=== PATIENT | female | born 1955 | race Caucasian/White ===

== ENCOUNTER → 2017-03-01 | Outpatient (CLI) | payer BC ==
--- NOTE | 2017-03-01 16:33 | RAD ---
DATE: March 01, 2017 EXAM: DIGITAL SCREEN BILAT W/CAD HISTORY: Routine screening. COMPARISON: March 04, 2015. May 15, 2013. TECHNIQUE: 2D digital CC and MLO views of each breast were obtained. This study was interpreted with the benefit of Computerized Aided Detection (CAD). FINDINGS: The breast parenchyma is heterogeneously dense, category C, which may obscure small masses. There is no worrisome mass or area of architectural distortion. There are a few benign-appearing calcifications. IMPRESSION: Benign findings. BI-RADS CATEGORY: 2 BENIGN FINDING RECOMMENDED FOLLOW-UP: 12M 12 MONTH FOLLOW-UP PQRS compliance statement: Patient information was entered into a reminder system with a target due date for the next mammogram. Mammography is a sensitive method for finding small breast cancers, but it does not detect them all and is not a substitute for careful clinical examination. A negative mammogram does not negate a clinically suspicious finding and should not result in delay in biopsying a clinically suspicious abnormality. "Our facility is accredited by the [employer] Mammography [employer]."
== END | disposition home or self-care (01) ==
LOC: MAMMO 14:19
PROVIDERS: ATTEND Family Medicine
DX: Z12.31 Encounter for screening mammogram for malignant neoplasm of breast (principal)
CPT/HCPCS: G0202; 77067

== ENCOUNTER → 2018-05-24 | Outpatient (CLI) | payer BC ==
--- NOTE | 2018-05-25 08:20 | RAD ---
DATE: 05/24/2018 4:00 PM EXAM: MAMMO MIA SCREENING BILATERAL HISTORY: routine screening evaluation. COMPARISON: Prior mammographic imaging dating back to 05/15/2011 Bilateral CC and MLO views of the breasts were performed. Bilateral breast tomosynthesis was performed in CC and MLO projections. This study was interpreted with the benefit of Computerized Aided Detection (CAD ). Breast Density: The breast parenchyma is dense, which could reduce the sensitivity of mammography. Breast parenchyma level density D. FINDINGS: Benign calcifications are present. The parenchymal pattern appears stable. No suspicious masses, microcalcifications or architectural distortion is present to suggest malignancy in either breast. The visualized axillae are unremarkable. IMPRESSION: No mammographic evidence of malignancy. BI-RADS CATEGORY: 2 BENIGN FINDING(S) RECOMMENDED FOLLOW-UP: 12M 12 MONTH FOLLOW-UP Annual screening mammography is recommended, unless clinically indicated sooner based on symptoms or change in physical exam. PQRS compliance statement: Patient information was entered into a reminder system with a target due date 05/26/2019 for the next mammogram. Mammography is a sensitive method for finding small breast cancers, but it does not detect them all and is not a substitute for careful clinical examination. A negative mammogram does not negate a clinically suspicious finding and should not result in delay in biopsying a clinically suspicious abnormality. "Our facility is accredited by the [employer] Mammography Program." MGD
== END | disposition home or self-care (01) ==
LOC: MAMMO 14:14
PROVIDERS: ATTEND Family Medicine
DX: Z12.31 Encounter for screening mammogram for malignant neoplasm of breast (principal)
CPT/HCPCS: 77063; 77067

== ENCOUNTER → 2019-05-25 | Outpatient (CLI) | payer BC ==
--- NOTE | 2019-05-25 16:36 | RAD ---
CHEST PA LATERAL Clinical indications: Cough. COMPARISON: No previous chest x-ray available. Findings: Hyperinflation is seen consistent with COPD. Old granulomatous disease is seen. There is mild right lateral costophrenic angle atelectasis or scarring. No lung consolidation or pleural effusion or pulmonary edema or pneumothorax is evident. The heart size and pulmonary vasculature and mediastinum and both hunter are unremarkable. Impression: COPD. Mild linear atelectasis or scarring within the right lateral costophrenic angle. Otherwise no lung consolidation is seen. Electronically signed by: Akira Terrell MD (05/25/2019 4:33 PM) [place]
== END | disposition home or self-care (01) ==
LOC: DXRAD 13:59
PROVIDERS: ATTEND Family Medicine
DX: Z01.811 Encounter for preprocedural respiratory examination (principal); D71 Functional disorders of polymorphonuclear neutrophils; J44.9 Chronic obstructive pulmonary disease, unspecified
CPT/HCPCS: 71046

== ENCOUNTER → 2019-08-23 | Outpatient (CLI) | payer BC ==
--- NOTE | 2019-08-23 16:13 | RAD ---
ABDOMEN COMPLETE History: Reason: RUQ PAIN / Spl. Instructions: / History: Comparison: None. Technique: Sonographic examination of the abdomen was performed and multiple grayscale and color Doppler static images were obtained. Findings: Liver demonstrates increased echogenicity. The liver measures 17 cm. Portal flow is patent. Common bile duct measures 5.2 mm in diameter. Gallbladder sludge. No gallbladder wall thickening. No pericholecystic fluid. Visualized pancreas is is not well seen due to overlying bowel gas. The right kidney measures 11.3 x 4.7 x 3.9 cm. No hydronephrosis. Possible small right renal cyst measures 0.9 cm. The left kidney measures 10.4 x 4.4 x 5.7 cm. No hydronephrosis. The spleen not well seen due to overlying bowel gas and structures. Aorta and IVC not well seen due to overlying bowel gas. IMPRESSION: 1. Increased hepatic echotexture, may indicate steatosis. 2. Gallbladder sludge. Electronically signed by: Ciro Rivers DO (08/23/2019 4:10 PM) [facility]
== END | disposition home or self-care (01) ==
LOC: US 10:33
PROVIDERS: ATTEND Family Medicine
DX: K82.8 Other specified diseases of gallbladder (principal)
CPT/HCPCS: 76700

== ENCOUNTER → 2019-09-01 | Outpatient (CLI) | payer BC ==
[~2019-09-01] VITALS: Ht 162.6 cm; Wt 59.0 kg
[~2019-09-01] MED LIST: SINCALIDE 1.18 MCG in IV NORMAL SALINE 50ML 30 ML IV ONE
--- NOTE | 2019-09-01 13:58 | RAD ---
HEPATOBILIARY SCAN WITH EJECTION FRACTION 09/01/2019 1:54 PM History: Reason: Abdominal pain / abnormal sono / Spl. Instructions: / History: Procedure: Serial static images are obtained of the liver and biliary system in the frontal projection following IV administration of 5.5 mCi of Technetium 99m Choletec. After filling of the gallbladder, 1.2 mcg of sincalide were infused over 30 minutes and dynamic imaging continued over this period. The gallbladder ejection fraction was calculated. Findings: There is prompt hepatic clearance of tracer from the blood pool. There is homogeneous distribution throughout the liver. The gallbladder ejection fraction measures 4% (normal gallbladder EF is 35% or greater). IMPRESSION: 1. The cystic duct and common bile duct are patent. Negative for acute cholecystitis. 2. The gallbladder ejection fraction is abnormally low measuring 4%. Findings may indicate chronic cholecystitis or gallbladder dyskinesia. Electronically signed by: Marcell Church MD (09/01/2019 1:55 PM) [id number]
== END ==
LOC: NM 08:47
PROVIDERS: ATTEND Family Medicine
DX: R93.2 Abnormal findings on diagnostic imaging of liver and biliary tract (principal)
CPT/HCPCS: 78227; A9537; J2805

== ENCOUNTER → 2019-09-18 | Outpatient (CLI) | payer BC ==
--- NOTE | 2019-09-18 11:36 | RAD ---
EXAM: Left knee, 5 views. HISTORY: Pain. Fall. COMPARISON: None. FINDINGS: 5 views left knee are obtained. There is no fracture, dislocation or subluxation. There is minimal medial compartment spurring. There is suprapatellar soft tissue prominence which may be due to a soft tissue hematoma. There is benign sclerosis within the proximal tibial metadiaphysis. IMPRESSION: 1. Suprapatellar soft tissue prominence. Given a history of recent fall, this may be due to a soft tissue hematoma. No joint effusion or fracture is seen. 2. Mild medial compartment osteoarthritis of the left knee. Electronically signed by: Mehnaz Carranza MD (09/18/2019 11:33 AM) [id number]
== END | disposition home or self-care (01) ==
LOC: DXRAD 10:42
PROVIDERS: ATTEND Family Medicine
DX: M17.12 Unilateral primary osteoarthritis, left knee (principal); Z91.81 History of falling
CPT/HCPCS: 73564

== ENCOUNTER → 2020-01-30 | Outpatient (CLI) | payer BC ==
[~2020-01-30] MED LIST changes: +ASCO100T4 PO; +ASPI-630 PO; +BUSP10TA PO; +DILT240C32 PO; +FAMO40TA4 PO; +LOSA100T14 PO; +MULT-245 PO; -SINCALIDE 1.18 MCG in IV NORMAL SALINE 50ML 30 ML IV ONE; +SUCR1TAB PO
== END ==
LOC: LAB 15:00
PROVIDERS: ATTEND Nurse Anesthetist, Certified Registered
DX: Z01.812 Encounter for preprocedural laboratory examination (principal); Z12.11 Encounter for screening for malignant neoplasm of colon; Z20.828 Contact with and (suspected) exposure to other viral communicable diseases
CPT/HCPCS: U0003

== ENCOUNTER → 2020-02-02 | Day surgery (SDC) | payer BC ==
[~2020-02-02] MED LIST changes: +ACETAMINOPHEN 325 MG TABLET PO PRN; +ALBUTEROL SULFATE 2.5 MG/3 ML NEBU. NEB PRN; +ATROPINE 0.5 MG/5 ML DISP.SYRIN. IV PRN; +IV RINGERS SOLUTION,LACTATED 1,000 ML IV SCH; +LIDOCAINE 2% PF 5 ML VIAL. ONE; +ONDANSETRON PF 4 MG/2 ML VIAL. IV PRN; +PHENOL ORAL SPRAY 177ML BOTTLE. MM PRN; +PHENYLEPHRINE 10 MG/ML VIAL. IV ONE; +PROPOFOL 10,000 MCG/ML (20ML) VIAL IV ONE; +diphenhydrAMINE 50 MG/ML VIAL IV PRN
[2020-02-02 12:46] VITALS: BP 126/77
--- NOTE | 2020-02-09 11:05 | PATHOLOGY ---
[facility] Accession Number: [id number] . 01 Material submitted: . PART A: gastrointestinal site - BIOPSY ANTRUM GASTRITIS PART B: cecum - BIOPSY CECUM POLYP X2. Modifiers: 2 PART C: colon - POLYPECTOMY DISTAL TRANSVERSE COLON. Modifiers: distal, transverse . 01 Clinical history: . ABDOMEN PAIN, N/V, SCREENING EGD WITH BIOPSY, COLON WITH BIOPSY . 02 Diagnosis: A. Gastric biopsies, antrum: - Chronic gastritis, mild. . B. Colon biopsies, cecal polyps x2: - Tubular adenomas. . C. Colon polyp, distal transverse colon polypectomy: - Large pedunculated tubular adenoma, measuring up to 2.8 cm in greatest dimension. . (JPM:mml; 02/08/2020) [facility] 02/08/2020 1357 Local . 02 Comment: Sections of the gastric antral biopsy show congestion and mild chronic inflammation. A properly-controlled immunoperoxidase stain for Helicobacter is negative for Helicobacter organisms. . Sections of the cecal polyp biopsies reveal two tubular adenomas showing no high grade dysplasia or evidence of malignancy. . Sections of the distal transverse colon polypectomy reveal a large pedunculated tubular adenoma. There is no high grade dysplasia or evidence of malignancy. The base of the polyp appears to be lined by normal colonic mucosa. . Special stain: Immunoperoxidase stain for Helicobacter on A1. . (JPM:mml; 02/08/2020) . 02 Electronically signed: . Chad Thorpe MD, Pathologist NPI- [id number] . 01 Gross description: . A. The specimen is received in formalin, labeled "Halle Pasqualemagdiel, biopsy antrum gastritis". Received are two segments of pale lam soft tissue ranging in size from 0.3 to 0.4 cm in maximum dimensions. The specimen is submitted entirely in cassette A1. . B. The specimen is received in formalin, labeled "Halle Wyatt, biopsy cecum polyp x2". Received are two segments of pale lam soft tissue measuring 0.3 cm each in maximum dimensions. The specimen is submitted entirely in cassette B1. . C. The specimen is received in formalin, labeled "Halle Wyatt, polypectomy distal transverse". Received is a polypoid segment of red-brown soft tissue measuring 2.8 x 2.3 x 2.0 cm in greatest dimensions. The surgical margin is inked. The specimen is serially sectioned and entirely submitted in cassettes C1 through C6. Due to the nature of the specimen, fragmentation has occurred upon sectioning. QAC/QAC 02/07/2020 1117 Local . 02 Pathologist provided ICD-10: K29.50, D12.0, D12.3 . 02 CPT . 064585, 945451, 485767, [id number] Specimen Comment: A courtesy copy of this report has been sent to [phone], [phone] Specimen Comment: [id number] Specimen Comment: Report sent to / DR BETANCUR Specimen Comment: A duplicate report has been generated due to demographic updates. Performed at: 01 [facility] [address], [place], [place] [id number] MD Renan Barragan MD Phone: [phone] Performed at: 02 [facility] [address] [place], [place] [id number] MD Chad Thorpe MD Phone: [phone]
== END | disposition home or self-care (01) ==
LOC: SURG 09:29
PROVIDERS: ATTEND Internal Medicine Gastroenterology
DX: Z12.11 Encounter for screening for malignant neoplasm of colon (principal); R10.12 Left upper quadrant pain; K21.00 Gastro-esophageal reflux disease with esophagitis, without bleeding; K29.00 Acute gastritis without bleeding; K44.9 Diaphragmatic hernia without obstruction or gangrene; K63.5 Polyp of colon; K57.30 Diverticulosis of large intestine without perforation or abscess without bleeding; K64.8 Other hemorrhoids; I10 Essential (primary) hypertension; J44.9 Chronic obstructive pulmonary disease, unspecified; Z91.81 History of falling; M17.12 Unilateral primary osteoarthritis, left knee; Z79.899 Other long term (current) drug therapy; Z79.82 Long term (current) use of aspirin; Z98.890 Other specified postprocedural states
CPT/HCPCS: 43239; 45380; 45381; 45385; J2001; J2704; J7120

== ENCOUNTER → 2020-04-26 | Outpatient (CLI) | payer BC ==
[2020-02-02 12:46] VITALS: BP 126/77
[~2020-04-26] MED LIST changes: -ACETAMINOPHEN 325 MG TABLET PO PRN; -ALBUTEROL SULFATE 2.5 MG/3 ML NEBU. NEB PRN; -ATROPINE 0.5 MG/5 ML DISP.SYRIN. IV PRN; -IV RINGERS SOLUTION,LACTATED 1,000 ML IV SCH; -LIDOCAINE 2% PF 5 ML VIAL. ONE; -ONDANSETRON PF 4 MG/2 ML VIAL. IV PRN; -PHENOL ORAL SPRAY 177ML BOTTLE. MM PRN; -PHENYLEPHRINE 10 MG/ML VIAL. IV ONE; -PROPOFOL 10,000 MCG/ML (20ML) VIAL IV ONE; -diphenhydrAMINE 50 MG/ML VIAL IV PRN
--- NOTE | 2020-04-26 17:42 | RAD ---
Right foot 3 views INDICATION: Foot pain COMPARISON: None FINDINGS: Combination of hallux valgus deformity in the great toe and hammertoe deformity to the second digit r esults in overlap between the first and second digits. Alignment otherwise unremarkable. There is a pair of fixation screws in the mid shaft of the fifth metatarsal. They are surrounded by a well healed fracture line but the more proximal screw shows mild surrounding lucency in the bone. Bones show mild generalized demineralization but no acute fracture and no aggressive appearing bony l esions otherwise noted. Soft tissues are unremarkable. IMPRESSION: There is some lucency surrounding the more proximal of the 2 screws placed in fixation of a now heale d fifth metatarsal midshaft fracture. Cannot exclude loosening of the screw or other pathologic proce ss. Correlate with clinical symptoms. Recommend clinical follow-up. Electronically signed by: Steph Washington MD (04/26/2020 5:40 PM) [id number]
== END ==
LOC: RAD 11:48
PROVIDERS: ATTEND Family Medicine
DX: M20.11 Hallux valgus (acquired), right foot (principal)
CPT/HCPCS: 73630

== ENCOUNTER 2020-05-22 00:21 | Inpatient (IN) | payer BC ==
[~2020-05-22] VITALS: Ht 162.6 cm; Wt 59.2 kg
[2020-05-22 00:50] LABS: HEMATOCRIT 39.9 % (36.0-47.0); HEMOGLOBIN 13.1 g/dL (12.0-15.5); MEAN CORPUSCULAR HEMOGLOBIN 37 pg (25-35); MEAN CORPUSCULAR HGB CONC 33 g/dL (31-37); MEAN CORPUSCULAR VOLUME 112 fL (79-100); PLATELET COUNT 164 x10^3/uL (140-400); RED BLOOD COUNT 3.55 x10^6/uL (3.50-5.40); RED CELL DISTRIBUTION WIDTH 13.4 % (11.5-14.5); WHITE BLOOD COUNT 5.7 x10^3/uL (4.0-11.0)
[2020-05-22 00:59] LABS: CALCIUM 8.4 mg/dL (8.5-10.1); CREATININE 0.7 mg/dL (0.6-1.0); GFR 84.5; POTASSIUM 3.1 mmol/L (3.5-5.1)
[2020-05-22] MEDS ORDERED: ONDANSETRON PF 4 MG/2 ML VIAL. IVP ONE ×2 (01:00→03:00)
[2020-05-22] MEDS ORDERED: IV RINGERS SOLUTION,LACTATED 1,000 ML IV ONE ×2 (01:00→03:00)
[2020-05-22 01:07] LABS: ALBUMIN 3.5 g/dL (3.4-5.0); ALBUMIN/GLOBULIN RATIO 1.2 (1.0-1.7); TOTAL PROTEIN 6.5 g/dL (6.4-8.2)
[2020-05-22] MEDS ORDERED: CONTRAST GIVEN. MC PRN (01:15)
[2020-05-22 01:16] LABS: PLT ESTIMATE ADEQUATE (ADEQUATE)
[2020-05-22] MEDS ORDERED: IOHEXOL 300 MG/ML 75 ML VIAL. IV ONE (01:30)
--- NOTE | 2020-05-22 01:54 | RAD ---
EXAM: CT ABDOMEN/PELVIS WITH CONTRAST. HISTORY: Epigastric pain. TECHNIQUE: Computed tomography of the abdomen and pelvis was performed after the intravenous administ ration of iodinated contrast. One or more of the following individualized dose reduction techniques w ere utilized for this examination: 1. Automated exposure control. 2. Adjustment of the mA and/or kV according to patient size. 3. Use of iterative reconstruction technique. COMPARISON: None. FINDINGS: Lung windows through the visualized portions of the bases reveal mild to moderate centrilob ular emphysema. There is a calcified granuloma in the left lower lobe. Coronary atherosclerotic calci fications are noted. Bone windows reveal no suspicious lesions. Diffuse hepatic steatosis is severe. The gallbladder is surgically absent. The common duct measures 9 mm. No cause for distal obstruction is seen. There is mild stranding about the pancreas. No pancreat ic parenchymal lesions are seen. There is no drainable collection. The pancreatic duct is not dilated . There is a 1 cm cyst at the right renal upper pole. The left kidney, adrenal glands and spleen are un remarkable. There are no pathologically enlarged lymph nodes. There is no small bowel obstruction. Th e appendix is not inflamed. Small bilateral inguinal hernias containing only fat. IMPRESSION: 1. Mild stranding about the pancreas suggesting pancreatitis. Correlate with lipase. 2. Severe diffuse hepatic steatosis. 3. Small bilateral inguinal hernias containing only fat. 4. Mild extrahepatic biliary dilatation status post cholecystectomy. Correlate for cholestasis to ass ess significance. 5. Centrilobular emphysema in the lung bases. Electronically signed by: Danielle Dobson MD (05/22/2020 1:51 AM) [facility]
--- NOTE | 2020-05-22 02:47 | PHYS DOC ---
Adult General Chief Complaint Chief Complaint: ABDOMINAL PAIN HPI HPI Patient is a 65-year-old female with a past medical history significant for COPD, alcoholism and alcoholic pancreatitis who presents with a chief complaint of epigastric pain. States he has had the pain for about 2 days now, and decre ased appetite. States that the pain is 8 out of 10, sharp in nature with some radiation to the back. States she is had some nausea and no vomiting. States her last drink was yesterday afternoon, and drinks hard liquor. Does endorse increased sputum, and cough over baseline over the last few days but is still a cigarette smoker. Denies any recent travel, illnesses, fevers, chest pain, dysuria, hematuria or blood in the stool. Review of Systems Review of Systems Constitutional: Denies fever or chills [] Eyes: Denies change in visual acuity, redness, or eye pain [] HENT: Denies nasal congestion or sore throat [] Respiratory: Denies cough or shortness of breath [] Cardiovascular: No additional information not addressed in HPI [] GI: Denies abdominal pain, nausea, vomiting, bloody stools or diarrhea [] : Denies dysuria or hematuria [] Musculoskeletal: Denies back pain or joint pain [] Integument: Denies rash or skin lesions [] Neurologic: Denies headache, focal weakness or sensory changes [] Endocrine: Denies polyuria or polydipsia [] All other systems were reviewed and found to be within normal limits, except as documented in this note. Current Medications Current Medications Current Medications Medications (Trade) Dose Ordered Sig/Brooke Start Time Stop Time Status Last Admin Dose Admin Fentanyl Citrate (Fentanyl 2ml Vial) 50 mcg 1X ONCE 05/22/20 01:00 05/22/20 01:01 DC 05/22/20 01:04 50 MCG Info (Do NOT chart on this entry -- for MONITORING) 1 each PRN DAILY PRN 05/22/20 01:15 05/24/20 01:14 Iohexol (Omnipaque 300 Mg/ml) 75 ml 1X ONCE 05/22/20 01:30 05/22/20 01:31 DC 05/22/20 01:10 75 ML Lactated Ringer's 1,000 ml @ 1,000 mls/hr 1X ONCE 05/22/20 01:00 05/22/20 01:59 DC 05/22/20 01:01 1,000 MLS/HR Ondansetron HCl (Zofran) 4 mg 1X ONCE 05/22/20 01:00 05/22/20 01:01 DC 05/22/20 01:01 4 MG Allergies Allergies Allergies Coded Allergies Type Severity Reaction Last Updated Verified No Known Drug Allergies 09/01/19 No Physical Exam Physical Exam Constitutional: Well developed, well nourished, no acute distress, non-toxic appearance. [] HENT: Normocephalic, atraumatic, bilateral external ears normal, oropharynx moist, no oral exudates, nose normal. [] Eyes: conjunctiva normal, no discharge. [] Neck: Normal range of motion, no tenderness, supple, no stridor. [] Cardiovascular:Heart rate regular rhythm, no murmur [] Lungs & Thorax: Coarse bilateral breath sounds with Abdomen: , soft, epigastric tenderness, no masses, no pulsatile masses. [] Skin: Warm, dry, no erythema, no rash. Capillary refill approximately 3 to 4 seconds [] Back: No tenderness, no CVA tenderness. [] Extremities: No tenderness, no cyanosis, no clubbing, ROM intact, no edema. [] Neurologic: Alert and oriented X 3, normal motor function, normal sensory function, no focal deficits noted. [] Psychologic: Affect normal, judgement normal, mood normal. [] Current Patient Data Vital Signs Vital Signs Date Time Temp Pulse Resp B/P (MAP) Pulse Ox O2 Delivery O2 Flow Rate FiO2 05/22/20 01:04 18 91 Room Air Lab Results Laboratory Tests Test 05/22/20 00:35 White Blood Count 5.7 x10^3/uL (4.0-11.0) Red Blood Count 3.55 x10^6/uL (3.50-5.40) Hemoglobin 13.1 g/dL (12.0-15.5) Hematocrit 39.9 % (36.0-47.0) Mean Corpuscular Volume 112 fL (79-100) H Mean Corpuscular Hemoglobin 37 pg (25-35) H Mean Corpuscular Hemoglobin Concent 33 g/dL (31-37) Red Cell Distribution Width 13.4 % (11.5-14.5) Platelet Count 164 x10^3/uL (140-400) Platelet Estimate Adequate (ADEQUATE) Macrocytosis Mod Sodium Level 142 mmol/L (136-145) Potassium Level 3.1 mmol/L (3.5-5.1) L Chloride Level 98 mmol/L (98-107) Carbon Dioxide Level 14 mmol/L (21-32) L Anion Gap 30 (6-14) H Blood Urea Nitrogen 10 mg/dL (7-20) Creatinine 0.7 mg/dL (0.6-1.0) Estimated GFR (Cockcroft-Gault) 84.5 BUN/Creatinine Ratio 14 (6-20) Glucose Level 75 mg/dL (70-99) Calcium Level 8.4 mg/dL (8.5-10.1) L Total Bilirubin 1.0 mg/dL (0.2-1.0) Aspartate Amino Transferase (AST) 174 U/L (15-37) H Alanine Aminotransferase (ALT) 142 U/L (14-59) H Alkaline Phosphatase 160 U/L (46-116) H Total Protein 6.5 g/dL (6.4-8.2) Albumin 3.5 g/dL (3.4-5.0) Albumin/Globulin Ratio 1.2 (1.0-1.7) Lipase 3000 U/L (73-393) H EKG EKG EKG with a rate of 87, QRS of 80, QTc of 473, no STEMI [] Radiology/Procedures Radiology/Procedures [] IMPRESSION: 1. Mild stranding about the pancreas suggesting pancreatitis. Correlate with lipase. 2. Severe diffuse hepatic steatosis. 3. Small bilateral inguinal hernias containing only fat. 4. Mild extrahepatic biliary dilatation status post cholecystectomy. Correlate for cholestasis to assess significance. 5. Centrilobular emphysema in the lung bases. Electronically signed by: Danielle Dobson MD (05/22/2020 1:51 AM) [facility] Chest x-ray with no obvious consolidation, atypical pneumonia or pneumothorax. Has a calcified granuloma in the left lower lobe. Patient does appear to have significant air trapping in her stomach. Heart Score Risk Factors: Risk Factors: DM, Current or recent (<one month) smoker, HTN, HLP, family history of CAD, obesity. Risk Scores: Risk Factors: DM, Current or recent (<one month) smoker, HTN, HLP, family hist ory of CAD, obesity. Course & Med Decision Making Course & Med Decision Making Patient is a 65-year-old female who presents with epigastric pain, nausea and decreased appetite for 2 days. Patient states she is an alcoholic and had her last drink of hard alcohol yesterday. Also endorses increased cough with sputum production. Vital signs notable for tachypnea and oxygen saturation 89% on room air. Placed on 2 L nasal cannula which brought her up to 94%. Placed IV. Started on IV fluid resuscitation. Gave fentanyl for pain and Zofran for nausea. Made NPO. EKG noted above with normal sinus rhythm. Troponin not concerning. Gave her DuoNeb treatment, and steroids as well as doxycycline for COPD exacerbation. Discussed all findings with patient and recommended admission to the hospital for continued evaluation and treatment of her pancreatitis and COPD exacerbation. Patient grateful, verbalized understanding and agreed with plan of admission. [] Dragon Disclaimer Dragon Disclaimer This electronic medical record was generated, in whole or in part, using a voice recognition dictation system. Departure Departure: Impression: Primary Impression: Pancreatitis Additional Impression: COPD exacerbation Disposition: ADMITTED INPT THIS HOSP Admitting Physician: Yung Suarez Condition: IMPROVED Referrals: TEHEL BETANCUR MD (PCP) Problem Qualifiers SANDEEP MILAN MD May 22, 2020 02:47
[2020-05-22] MEDS ORDERED: DEXAMETHASONE 4 MG TABLET PO ONE (03:00)
[2020-05-22] MEDS ORDERED: DOXYCYCLINE HYCLATE 100 MG TABLET PO ONE (03:00)
[2020-05-22] MEDS ORDERED: IPRATRPIUM/ALBUTEROL 0.5/2.5MG 3 ML NEBU. NEB ONE (03:00)
--- NOTE | 2020-05-22 03:09 | EKG ---
[address] [address] Test Date: 2020-05-22 Test Time: 03:03:27 Pat Name: CLAUDIA MARTIN Department: Room: Gender: F Leveler: : 1955 Requested By: SANDEEP MILAN Order Number: [id number] Reading MD: Measurements Intervals [place] Rate: 87 P: 44 MN: 172 QRS: 62 QRSD: 80 T: 64 QT: 388 QTc: 473 Interpretive Statements SINUS RHYTHM NORMAL ECG RI6.02 No previous ECG available for comparison
[2020-05-22 03:15] LABS: BACTERIA,URINE 0 /HPF (0-FEW); BILIRUBIN,URINE NEG (NEG); CLARITY,URINE CLEAR; COLOR,URINE YELLOW; GLUCOSE,URINE NEG (NEG); NITRITE,URINE NEG (NEG); RBC,URINE 0 /HPF (0-2); SQUAMOUS EPITHELIAL CELL,UR OCC /LPF; WBC,URINE OCC /HPF (0-4)
--- NOTE | 2020-05-22 03:16 | RAD ---
EXAM: CHEST ONE VIEW. HISTORY: Shortness of breath, cough. COMPARISON: 05/25/2019. FINDINGS: A frontal view of the chest is obtained. Hyperinflation is consistent with chronic obstructive pulmonary disease. A right infrahilar opacity a be secondary to summation of normal vasculature and the right heart border but this is unclear. Ther e are calcified granulomas bilaterally. Scarring or atelectasis is noted in the right base and left m idlung. There is no pneumothorax or pleural effusion. The heart is not enlarged. There are atheroscle rotic calcifications of the aorta. IMPRESSION: 1. Right infrahilar opacity may be summation of normal structures but this is unclear. Follow-up or C T could exclude an infrahilar mass or infiltrate. Electronically signed by: Danielle Dobson MD (05/22/2020 3:14 AM) [facility]
[2020-05-22 05:30] VITALS: BP 117/60
[2020-05-22] MEDS ORDERED: MAGN71.5 PO (06:04)
[2020-05-22] MEDS ORDERED: OMEP20TA63 PO (06:04)
[2020-05-22 06:52] VITALS: BP 124/75
[2020-05-22] MEDS: MVI, ADULT NO.4 WITH VIT K 10 ML, THIAMINE INJ 100 MG, FOLIC ACID INJ 1 MG in IV NORMAL... IV SCH (09:00)
[2020-05-22] MEDS ORDERED: cloNIDine HCL 0.1 MG TABLET PO PRN (09:15)
[2020-05-22] MEDS ORDERED: diphenhydrAMINE 50 MG/ML VIAL IVP PRN (09:15)
[2020-05-22] MEDS ORDERED: LORazepam 1 MG TABLET PO PRN ×2 (09:15)
--- NOTE | 2020-05-22 10:11 | HP ---
ADMIT DATE: 05/22/2020 ATTENDING PHYSICIAN: Dr. Infante. CHIEF COMPLAINT: Abdominal pain. HISTORY OF PRESENT ILLNESS: The patient is a 65-year-old female admitted through the ED with a 2-day history of epigastric and generalized abdominal pain, decreased appetite, pain is 8/10, sharp in nature with some radiation to the back. She and her both drink heavily. There alcohol of choice is [employer] They buy a half gallon bottle and it would last the two of them 2 days, suggesting that she drinks approximately a quart of alcohol every 2 days. She has had some cough. No COVID exposure. In the ED, extensive workup showed evidence of acute pancreatitis. She is admitted then for further treatment and evaluation. Lipase level was 3000. Abdominal CT showed stranding of the pancreas, diffuse hepatic steatosis, bilateral inguinal hernias without obstruction, mild extrahepatic biliary dilatation, previous cholecystectomy and some cholestasis, central lobar emphysema at the lung base. Chest x-ray demonstrated no acute infiltrates. She has a right infrahilar opacity, may be summation. A follow up CT recommended. PAST MEDICAL HISTORY: Significant for chronic alcoholism, essential hypertension and COPD. She is also a heavy smoker. CURRENT MEDICATIONS: Scheduled include ascorbic acid, aspirin, BuSpar, diltiazem 240, losartan, magnesium, multivitamin, omeprazole, and Carafate. ALLERGIES: She has no known drug allergies. FAMILY HISTORY: Her father of complications of lung cancer at age 68. Mom of complications of heart disease, diabetes, age 70. She is , retired, lives with her . SOCIAL HISTORY: Alcohol and tobacco use to excess as noted. REVIEW OF SYSTEMS: Significant for the localized abdominal pain, no hematemesis. No COVID exposure. She has chronic productive sputum. She is a heavy smoker. All other systems reviewed and determined to be negative. PHYSICAL EXAMINATION: GENERAL: When I saw her, this is a pleasant, alert, sober female. INITIAL VITAL SIGNS: Showed a blood pressure of 124/75, pulse is 90 and regular, temperature 98.1 degrees Fahrenheit, oxygen saturation 92% on 3 liters of supplemental oxygen by nasal cannula. HEENT: Head is without trauma. Pupils are reactive. Sclerae are nonicteric. The oropharynx is clear. NECK: Supple. LUNGS: Diffuse wheezing noted in the upper airways. CARDIOVASCULAR: Showed distant heart tones. No gallops. ABDOMEN: Soft. Minimal guarding. No rebound tenderness. Bowel sounds are hypoactive. EXTREMITIES: Showed trace edema. NEUROLOGIC: Focally intact. The patient was sober. Speech was fluent. She had no focal motor deficits. SKIN: Warm and dry. PERTINENT LABORATORY STUDIES: Admission hemoglobin is 13.1 g/dL with white count of 5700. The MCV is markedly elevated at 112, suggesting a metabolic acidosis related to alcoholism. Sodium is 142 mEq/L, potassium 3.1 mEq, creatinine is 0.7 mg/dL. Transaminases showed a bilirubin of 1, AST 174, ALT of 142, alkaline phosphatase of 160. The serum lipase was 3000. ASSESSMENT: 1. A 65-year-old female with acute pancreatitis. 2. Chronic alcoholism. 3. Alcoholic pancreatitis. 4. Status post cholecystectomy. 5. Chronic obstructive pulmonary disease due to tobacco addiction. 6. Asymptomatic hypokalemia. 7. Abdominal pain related to chronic alcoholism. PLAN: 1. Admit to the inpatient unit. 2. IV hydration. 3. N.p.o. 4. Pain and nausea control. 5. Nicotine patch. WILSON INFANTE MD DR: SHENA/raghu JOB#: [id number] / [id number] ETHEL Holloway MD
[2020-05-22] MEDS: NICOTINE 21MG PATCH. TD SCH (10:25)
[2020-05-22] MEDS: POTASSIUM CL 40MEQ IN 0.9%NACL 1,000 ML IV SCH ×2 (10:26→22:04)
[2020-05-22 11:00] VITALS: BP 120/70
[2020-05-22 15:00] VITALS: BP 143/99
[2020-05-22 19:30] VITALS: BP 140/95
[2020-05-22 22:11] VITALS: BP 136/87
[2020-05-23 06:11] VITALS: BP 120/86
[2020-05-23 06:23] LABS: ALBUMIN 2.8 g/dL (3.4-5.0); CALCIUM 7.6 mg/dL (8.5-10.1); CREATININE 0.6 mg/dL (0.6-1.0); POTASSIUM 4.3 mmol/L (3.5-5.1); TOTAL BILIRUBIN 0.9 mg/dL (0.2-1.0); TOTAL PROTEIN 5.6 g/dL (6.4-8.2)
[2020-05-23] MEDS: MVI, ADULT NO.4 WITH VIT K 10 ML, THIAMINE INJ 100 MG, FOLIC ACID INJ 1 MG in IV NORMAL... IV SCH (08:46)
--- NOTE | 2020-05-23 10:19 | PN ---
DATE: 05/23/2020 ATTENDING PHYSICIAN: Dr. Infante. SUBJECTIVE: The patient is lethargic from her Ativan. No active withdrawals. She is not hungry. She has had some clear liquids. Abdominal pain seems to be controlled. OBJECTIVE FINDINGS: VITAL SIGNS: Blood pressure today is 136/87 mmHg, pulse 92 and regular, temperature 98.5 degrees Fahrenheit, oxygen saturation 91% on 3 liters nasal cannula. HEENT: Head is without trauma. Pupils are reactive. Sclerae nonicteric. Oropharynx is clear. NECK: Supple, no bruits identified. LUNGS: Shallow respirations. CARDIOVASCULAR: Showed regular heart tones. No gallops. ABDOMEN: Soft. Hypoactive bowel sounds. There is no guarding or rebound tenderness. EXTREMITIES: Without edema. NEUROLOGIC: Sleepy. PERTINENT LABORATORY STUDIES: Sodium is 141 mEq, potassium replaced up to 4.3 mEq per liter. The creatinine is 0.6 mg/dL, nonfasting blood sugar 128. Transaminases are elevated. Bilirubin 0.9, AST 81, ALT 101 and alkaline phosphatase 126. ASSESSMENT: 1. A 65-year-old female with alcoholic pancreatitis. 2. Chronic alcoholism. 3. Alcoholic gastritis. 4. Status post cholecystectomy. 5. Chronic obstructive pulmonary disease due to tobacco use. 6. Hypokalemia, replaced. 7. Abdominal pain related to pancreatitis. PLAN: 1. Continue IV hydration. 2. Pain and nausea control. 3. Clear liquid diet. 4. Nicotine patch. 5. Follow up chemistries. WILSON INFANTE MD DR: SHENA/raghu JOB#: [id number] / [id number]
[2020-05-23] MEDS: NICOTINE 21MG PATCH. TD SCH (12:04)
[2020-05-23 12:10] VITALS: BP 131/92
[2020-05-23 14:57] VITALS: BP 144/95
[2020-05-23 19:25] VITALS: BP_SYST 122; BP_SYST 99; BP_DIAS 68; BP_DIAS 80
[2020-05-23 22:32] VITALS: BP 120/78
[2020-05-24 08:01] VITALS: BP 101/74
[2020-05-24] MEDS: MVI, ADULT NO.4 WITH VIT K 10 ML, THIAMINE INJ 100 MG, FOLIC ACID INJ 1 MG in IV NORMAL... IV SCH (09:22)
[2020-05-24] MEDS: NICOTINE 21MG PATCH. TD SCH (09:22)
[2020-05-24 11:00] VITALS: BP 112/81
[2020-05-24 15:00] VITALS: BP 113/82
--- NOTE | 2020-05-24 18:30 | PN ---
DATE: 05/24/2020 ATTENDING PHYSICIAN: Dr. Infante. SUBJECTIVE: Obtunded, barely arousable. OBJECTIVE FINDINGS: VITAL SIGNS: Blood pressure today is 120/78, pulse 99 and regular, temperature 97.8 degrees Fahrenheit, oxygen saturation 93% on room air. HEENT: Head is without trauma. Pupils are reactive. Oropharynx clear. NECK: No stridor. LUNGS: Shallow respirations. CARDIOVASCULAR: Showed distant heart tones, tachycardic rhythm. No gallops. ABDOMEN: Soft, no guarding or rebound tenderness. Bowel sounds are hypoactive. EXTREMITIES: Showed no cyanosis or edema. NEUROLOGIC: Obtunded, nonambulatory. ASSESSMENT: 1. A 65-year-old female with acute pancreatitis. 2. Chronic alcoholism. 3. Altered mentation due to alcohol withdrawal syndrome. 4. Probable Wernicke-Korsakoff syndrome. 5. Status post cholecystectomy. 6. Chronic obstructive pulmonary disease due to heavy tobacco use. 7. Hypokalemia, replaced. 8. Abdominal pain related to pancreatitis. PLAN: 1. Keep in ICU monitoring. 2. Continue IV hydration. 3. N.p.o. as she is obtunded. 4. CIWA protocol. 5. I will try to contact the daughter who has called earlier, the has a listed number, but he also drinks to excess and enabled her alcohol use. Prognosis remains guarded. She is a full code. WILSON INFANTE MD DR: SHENA/raghu JOB#: [id number] / [id number]
[2020-05-24 19:00] VITALS: BP 112/75
[2020-05-24 23:00] VITALS: BP 124/86
[2020-05-25 06:29] VITALS: BP 109/82
[2020-05-25] MEDS: NICOTINE 21MG PATCH. TD SCH (08:25)
[2020-05-25] MEDS: MVI, ADULT NO.4 WITH VIT K 10 ML, THIAMINE INJ 100 MG, FOLIC ACID INJ 1 MG in IV NORMAL... IV SCH (08:25)
--- NOTE | 2020-05-25 10:03 | PN ---
DATE: 05/25/2020 ATTENDING PHYSICIAN: Dr. Infante. SUBJECTIVE: More alert today. Not much of an appetite. No new complaints. OBJECTIVE FINDINGS: VITAL SIGNS: Blood pressure today is 109/82, pulse 100 and regular. She is afebrile. Oxygen saturation 92% on 2 liters. HEENT: Head is without trauma. Pupils are reactive. Sclerae nonicteric. Oropharynx clear. NECK: Supple, no bruits. LUNGS: Good breath sounds. CARDIOVASCULAR: Showed regular heart tones. No gallops. ABDOMEN: Soft. Hypoactive bowel sounds. EXTREMITIES: Without edema. NEUROLOGIC: Focally intact. Alert and sober. ASSESSMENT: 1. A 65-year-old female with alcoholic pancreatitis, improved. 2. Chronic alcoholism. 3. Chronic obstructive pulmonary disease. 4. Alcohol withdrawal syndrome, delirium tremens, improved. 5. Probable underlying Wernicke-Korsakoff syndrome. 6. Hypokalemia, replaced. PLAN: 1. Advance diet. 2. Pain and nausea control. 3. Physical therapy consult. She is quite weak. 4. Discharge planning. WILSON INFANTE MD DR: SHENA/raghu JOB#: [id number] / [id number]
[2020-05-25 11:33] VITALS: BP 109/82
[2020-05-25 15:00] VITALS: BP 113/82
[2020-05-25 20:01] VITALS: BP 133/91
[2020-05-26 05:39] VITALS: BP 134/87
[2020-05-26] MEDS ORDERED: ACETAMINOPHEN 325 MG TABLET PO PRN (06:15)
--- NOTE | 2020-05-26 08:30 | PN ---
DATE: 05/26/2020 ATTENDING PHYSICIAN: Dr. Infante. SUBJECTIVE: Very alert, sober, calm, no new acute distress. Abdominal pain and nausea has resolved. She remains very weak, however. She can barely pull herself up in the bed. Thus, she requires significant assistance for transfer and just for going to the bathroom. OBJECTIVE FINDINGS: VITAL SIGNS: Blood pressure today is 134/87, temperature 98.6, pulse 94 and regular, oxygen saturation 93% on 2 liters by nasal cannula. HEENT: Head is without trauma. Pupils are reactive. Sclerae nonicteric. Oropharynx clear. NECK: Supple. No stridor. LUNGS: Good breath sounds. CARDIOVASCULAR: Showed regular heart tones. No gallops. ABDOMEN: Soft. EXTREMITIES: Without edema. NEUROLOGIC: Profound weakness. She is unable to bear weight. She still requires quite a bit of assistance in transfer. Nevertheless, she is a very high risk of falling. ASSESSMENT: 1. A 65-year-old female with alcoholic pancreatitis, resolving. 2. Chronic alcoholism. 3. Delirium tremens symptoms resolved. 4. Probable underlying Wernicke-Korsakoff syndrome. 5. Hypokalemia, replaced. 6. Profound weakness related to alcoholism. PLAN: 1. Advance diet as tolerated. 2. Pain and nausea control. 3. Rx per physical therapy. 4. I strongly recommend discharge to subacute rehabilitation. I believe that physical therapy will share the same sentiments. She is going to decide if she wants to go home, but unfortunately she requires a higher level of care for discharge home at this time. WILSON INFANTE MD DR: SHENA/raghu JOB#: [id number] / [id number]
[2020-05-26] MEDS: NICOTINE 21MG PATCH. TD SCH (09:19)
[2020-05-26] MEDS: MVI, ADULT NO.4 WITH VIT K 10 ML, THIAMINE INJ 100 MG, FOLIC ACID INJ 1 MG in IV NORMAL... IV SCH (09:21)
[2020-05-26 13:34] VITALS: BP 130/81
[2020-05-26 19:25] VITALS: BP 137/91
[2020-05-26 22:55] VITALS: BP 119/84
[2020-05-27 05:10] VITALS: BP 144/89
[2020-05-27] MEDS: NICOTINE 21MG PATCH. TD SCH (07:45)
[2020-05-27] MEDS: MVI, ADULT NO.4 WITH VIT K 10 ML, THIAMINE INJ 100 MG, FOLIC ACID INJ 1 MG in IV NORMAL... IV SCH (07:46)
--- NOTE | 2020-05-27 08:40 | PN ---
DATE: 05/27/2020 ATTENDING PHYSICIAN: Dr. Infante. SUBJECTIVE: Mild low back pain tolerable. She is alert, no further nausea. No dyspnea. She is calm. We had a nice conversation. She is quite lucid. She realizes her condition is prone to falling. She is agreeable to go to subacute rehabilitation. OBJECTIVE FINDINGS: VITAL SIGNS: Blood pressure this morning is 144/89 mmHg, respirations 18, pulse is 91 per minute, temperature is afebrile and oxygen saturation 94% on 2 liters by nasal cannula. HEENT: Head is without trauma. Pupils are reactive. Sclerae nonicteric. Oropharynx clear. NECK: Supple. LUNGS: Good breath sounds. CARDIOVASCULAR: Showed regular heart tones. No gallops. ABDOMEN: Soft. EXTREMITIES: Without edema. NEUROLOGIC: Focally intact. Speech is fluent. SKIN: Warm and dry. ASSESSMENT: 1. This 65-year-old female has alcoholic pancreatitis, which has since resolved. 2. Chronic alcoholism. 3. Underlying depression with anxiety. 4. Delirium tremens symptoms resolved. 5. Probable Wernicke-Korsakoff syndrome, improved. 6. Hypokalemia, replaced. 7. Chronic obstructive pulmonary disease. 8. Chronic low back pain due to spinal canal stenosis. 9. Generalized debilitation and weakness. PLAN: 1. Advance diet. 2. Discontinue IV fluids. 3. P.r.n. pain meds. 4. The patient is agreeable to go to subacute rehabilitation. We will look at a facility that will accept her insurance. 5. Long discussion regarding short and long-term goals. Strong encouragement to avoid further alcohol and tobacco. Whether or not she will quit drinking and smoking when she gets home remains to be seen. WILSON IFNANTE MD DR: SHENA/raghu JOB#: [id number] / [id number]
[2020-05-27] MEDS: IPRATRPIUM/ALBUTEROL 0.5/2.5MG 3 ML NEBU. NEB ONE ×2 (08:45→11:03)
[2020-05-27 11:24] VITALS: BP 131/89
[2020-05-27 15:25] VITALS: BP 125/91
[2020-05-27 19:00] VITALS: BP 137/90
[2020-05-27] MEDS ORDERED: IPRATRPIUM/ALBUTEROL 0.5/2.5MG 3 ML NEBU. NEB PRN (20:00)
[2020-05-27] MEDS: oxyCODONE/APAP 10/325 1 TAB TABLET PO PRN (21:29)
[2020-05-27] MEDS ORDERED: IPRATROPIUM/ALBUTEROL 20/100mcg/INH INHALER. INH PRN (21:45)
[2020-05-28] MEDS ORDERED: ALBUTEROL SULFATE 2.5 MG/3 ML NEBU. NEB PRN (01:30)
[2020-05-28] MEDS: oxyCODONE/APAP 10/325 1 TAB TABLET PO PRN ×4 (03:29→22:03)
[2020-05-28] MEDS: NICOTINE 21MG PATCH. TD SCH (07:52)
[2020-05-28 08:38] VITALS: BP 117/84
--- NOTE | 2020-05-28 10:38 | DS ---
DATE OF DISCHARGE: 05/28/2020 ATTENDING PHYSICIAN: Dr. Infante. FINAL DISCHARGE DIAGNOSES: 1. Alcoholic pancreatitis. 2. Chronic alcoholism. 3. Delirium tremens. Symptoms resolved. 4. Probable Wernicke-Korsakoff syndrome, improved. 5. Hypokalemia, replaced. 6. Chronic obstructive pulmonary disease due to tobacco use. 7. Chronic low back pain. 8. Weakness and generalized debilitation. HISTORY AND PHYSICAL: The patient is a 65-year-old female who was drinking a quart of DocOnYou 7 along with smoking 1-2 pack of cigarettes daily. She was admitted with abdominal pain and clinical evidence of acute pancreatitis. PHYSICAL EXAMINATION: Please see the dictated note. PERTINENT LABORATORY AND X-RAY STUDIES: Admission hemoglobin was 13.1 g/dL, white count 5700. Chemistry panel showed admission lipase of 3000. Transaminases are elevated. Bilirubin 1.0. Sodium 142 mEq, potassium 3.1, replaced to 4.3 mEq per liter. Creatinine was stable at 0.6 mg percent. Serology negative for coronavirus twice on the rapid test. COURSE IN THE HOSPITAL: The patient was admitted. She was kept n.p.o., given IV hydration, pain and nausea control. She had for the second and third hospital day, episodes of confusion related to delirium tremens. No seizure activity. CIWA protocol was administered and she tolerated this well. Gradually, her sensorium cleared. Her abdominal pain and nausea resolved. Diet was advanced. Physical therapy also worked with the patient. She remained quite weak. It was recommended for subacute rehab and she was agreeable. On the seventh hospital day, her blood pressure and vital signs were quite stable. She was afebrile. Abdominal symptoms resolved, pancreatitis resolved and she was tolerating solid foods. She is agreeable to go to [facility] [place], [place] for subsequent rehabilitation with plans on going home after that. Her discharge meds include the following: She will continue her albuterol inhaler 4 times a day, vitamin C daily, aspirin 81 mg daily, BuSpar 10 mg b.i.d., diltiazem 240 daily, losartan 100 mg p.o. daily, multivitamin, and Prilosec 20 mg daily. In addition, I wrote a script for Percocet 10/325 one p.o. q. 6 hours p.r.n. pain. Her prognosis is guarded. Strong encouragement for her to avoid further tobacco and alcohol use when she returns home. Whether or not she will quit drinking and smoking remains to be seen. She was discharged then from our hospital in stable condition with explicit instructions and followup care. Total discharge time spent 38 minutes. WILSON INFANTE MD DR: SHENA/raghu JOB#: [id number] / [id number] ETHEL Holloway MD
[2020-05-28 12:01] VITALS: BP 130/86
[2020-05-28 15:41] VITALS: BP 130/88
[2020-05-28 19:04] VITALS: BP 123/79
[2020-05-29] MEDS: oxyCODONE/APAP 10/325 1 TAB TABLET PO PRN ×2 (04:03→10:19)
[2020-05-29 07:00] VITALS: BP 128/80
[2020-05-29] MEDS: NICOTINE 21MG PATCH. TD SCH (08:24)
== END 2020-05-29 13:55 | disposition home health service (06) | DRG 439 ==
LOC: ER 00:21 → ICU 05:20 → UNDODISIN 05-24 11:45
PROVIDERS: ADMIT Internal Medicine; ATTEND Internal Medicine
DX: K85.20 Alcohol induced acute pancreatitis without necrosis or infection (principal); F10.231 Alcohol dependence with withdrawal delirium; E87.6 Hypokalemia; F10.26 Alcohol dependence with alcohol-induced persisting amnestic disorder; F17.210 Nicotine dependence, cigarettes, uncomplicated; F41.8 Other specified anxiety disorders; G89.29 Other chronic pain; I10 Essential (primary) hypertension; J43.2 Centrilobular emphysema; K29.20 Alcoholic gastritis without bleeding; K40.20 Bilateral inguinal hernia, without obstruction or gangrene, not specified as recurrent; K76.0 Fatty (change of) liver, not elsewhere classified; M54.5 Low back pain; Y90.9 Presence of alcohol in blood, level not specified; M48.00 Spinal stenosis, site unspecified; Z79.82 Long term (current) use of aspirin; Z79.899 Other long term (current) drug therapy; Z80.1 Family history of malignant neoplasm of trachea, bronchus and lung; Z83.3 Family history of diabetes mellitus; Z90.49 Acquired absence of other specified parts of digestive tract; Z20.822 Contact with and (suspected) exposure to COVID-19
CPT/HCPCS: 36415; 71045; 74177; 80053; 81001; 83690; 84484; 85027; 87426; 93005; 94640; 96361; 96374; 96375; 96376; J2060; J2405; J3010; J7120; J8540; Q9967; U0003; 97110; 97116; 97530; 99285-25; J7030; J7613

== ENCOUNTER → 2021-01-17 | Outpatient (CLI) | payer BC ==
[~2021-01-17] MED LIST changes: +MAGN71.5 PO; +OMEP20TA63 PO
--- NOTE | 2021-01-17 12:41 | RAD ---
EXAM: Right elbow, 2 views. HISTORY: Bursitis. COMPARISON: None. FINDINGS: 2 views of the right elbow are obtained. There is internal fixation of a healed olecranon f racture with a pin and cerclage wires. There is soft tissue swelling overlying the olecranon. There i s no elbow effusion. There is no acute fracture. IMPRESSION: 1. Soft tissue swelling overlying the olecranon. This can be seen with reported olecranon bursitis. 2. Instrumented fusion of a healed olecranon fracture. Electronically signed by: Mehnaz Carranza MD (01/17/2021 12:38 PM) [id number]
== END ==
LOC: RAD 11:17
PROVIDERS: ATTEND Physician Assistant
DX: M79.89 Other specified soft tissue disorders (principal); M25.521 Pain in right elbow
CPT/HCPCS: 73070

== ENCOUNTER → 2021-07-17 | Outpatient (CLI) | payer BC ==
--- NOTE | 2021-07-17 15:51 | RAD ---
Bilateral digital screening 2-D and 3-D (tomosynthesis) mammogram: Reason for examination: Routine screening. Comparison is made to previous mammograms from 05/24/2018 and 05/02/2016. Bilateral mammograms in CC and oblique projections were obtained with 2-D imaging and 3-D tomosynthes is imaging and reviewed on the workstation. Interpretation was made with the benefit of CAD. Findings: Breast density: Category C. The breasts are heterogeneously dense, which may obscure small masses. There are no suspicious masses, malignant appearing calcifications or architectural distortion. Impression: No evidence of malignancy. ASSESSMENT: BI-RADS 1. Negative. Recommendations: Routine screening mammograms. This patient's information has been entered into a reminder system for the patient to be notified wit h the results of her examination and a target date for the next mammogram. Your patient's mammogram demonstrates that she has dense breast tissue (breast density category C or D), which could hide abnormalities, and if she has other risk factors for breast cancer that have bee n identified, she might benefit from supplemental screening tests that may be suggested by you as her ordering physician. Dense breast tissue, in and of itself, is a relatively common condition. Therefo re, this information is not provided to cause undue concern, but rather to raise your awareness and t o promote discussion with your patient regarding the presence of other risk factors, in addition to d ense breast tissue. Electronically signed by: Shamika Fry MD (07/17/2021 3:49 PM) [id number]
--- NOTE | 2021-07-17 16:10 | RAD ---
EXAM: CT CHEST WITHOUT CONTRAST (LDCT LUNG CANCER SCREENING). HISTORY: Risk factors for pulmonary malignancy. 40 year pack history of smoking. Chronic cough TECHNIQUE: CT of the chest was performed without intravenous contrast using a low-dose lung screening protocol. Findings analysis is based on ACR Lung-RADS v1.1. *One or more of the following individual ized dose reduction techniques were utilized for this examination: 1. Automated exposure control. 2. Adjustment of the mA and/or kV according to patient size. 3. Use of iterative reconstruction technique. COMPARISON: Chest CT November 26, 2006. FINDINGS: Nodules: No suspicious noncalcified pulmonary nodules are identified. Other findings: Images of the upper abdomen reveal no acute abnormality. Bone windows reveal no suspi cious lesions. There are no pathologically enlarged mediastinal or axillary lymph nodes.. Coronary calcification not ed. There is no pleural or pericardial effusion. The heart is not enlarged. No acute pulmonary parenc hymal process is identified. Calcified pulmonary granulomas noted. There is of scarring and atelectas is in the right middle lobe noted. IMPRESSION/RECOMMENDATION: 1. ACR Lung-RADS category: 1 2. Continue annual screening with LDCT in 12 months. Electronically signed by: Marcell Church MD (07/17/2021 4:08 PM) [id number]
--- NOTE | 2021-07-17 17:27 | RAD ---
XR SHOULDER_LEFT 2+ VIEWS History: Reason: PAIN / Spl. Instructions: / History: Technique: 3 views left shoulder Comparison: None. Findings: No dislocation. No acute fracture. Mild left glenohumeral degenerative changes with joint space narro wing and marginal osteophyte formation.. Impression: 1. Mild left glenohumeral DJD. Electronically signed by: Ciro Rivers DO (07/17/2021 5:24 PM) [id number]
== END ==
LOC: MAMMO 11:50
PROVIDERS: ATTEND Family Medicine
DX: Z12.31 Encounter for screening mammogram for malignant neoplasm of breast (principal); J84.10 Pulmonary fibrosis, unspecified; I25.10 Atherosclerotic heart disease of native coronary artery without angina pectoris; M19.012 Primary osteoarthritis, left shoulder; M25.712 Osteophyte, left shoulder; M25.812 Other specified joint disorders, left shoulder; F17.210 Nicotine dependence, cigarettes, uncomplicated
CPT/HCPCS: 71271; 73030; 77063; 77067